=== PATIENT | male | born 1990 | race Caucasian/White ===

== ENCOUNTER 2017-01-25 00:01 | Emergency (ER) | payer OTHER ==
[~2017-01-25] VITALS: Ht 182.9 cm; Wt 90.7 kg
== END 2017-01-25 02:10 | disposition home or self-care (01) ==
LOC: ED 00:01
DX: J20.9 Acute bronchitis, unspecified (principal); R04.2 Hemoptysis; Z90.49 Acquired absence of other specified parts of digestive tract
CPT/HCPCS: 71020; 80053; 85025; 85379; 85610; 85730; 99283

== ENCOUNTER 2017-02-26 05:11 | Emergency (ER) | payer OTHER ==
[~2017-02-26] VITALS: Ht 182.9 cm; Wt 99.8 kg
[2017-02-26] MEDS ORDERED: TRUVADA 200 MG1 EACH PO (05:38)
[2017-02-26] MEDS ORDERED: ISENTRESS400 MG PO (05:38)
[2017-02-26] MEDS ORDERED: ZOFRAN ODT8 MG PO (05:42)
== END 2017-02-26 06:13 | disposition home or self-care (01) ==
LOC: ED 05:11
DX: S69.91XA Unspecified injury of right wrist, hand and finger(s), initial encounter (principal); Z90.49 Acquired absence of other specified parts of digestive tract; Z23 Encounter for immunization; W46.1XXA Contact with contaminated hypodermic needle, initial encounter; Y92.69 Other specified industrial and construction area as the place of occurrence of the external cause; Y99.0 Civilian activity done for income or pay
CPT/HCPCS: 36415; 80074; 80076; 86703; 90471; 90715; 99283

== ENCOUNTER 2017-06-07 03:55 | Emergency (ER) | payer OTHER ==
[~2017-06-07] VITALS: Ht 182.9 cm; Wt 99.8 kg
[~2017-06-07 03:55] MED LIST: ISENTRESS400 MG PO; TRUVADA 200 MG1 EACH PO; ZOFRAN ODT8 MG PO
[2017-06-07] MEDS ORDERED: TRANSDERM-SCOP1 EACH TD (05:37)
[2017-06-07] MEDS ORDERED: MECLIZINE HCL25 MG PO (05:37)
== END 2017-06-07 05:50 | disposition home or self-care (01) ==
LOC: ED 03:55
DX: H81.399 Other peripheral vertigo, unspecified ear (principal)
CPT/HCPCS: 70450; 80053; 81001; 83690; 85025; 99284; J7030